=== PATIENT | male | born 1990 | race Two or more races ===

== ENCOUNTER 2020-07-30 17:10 | Emergency (ER) | payer OTHER ==
[~2020-07-30] VITALS: Ht 177.8 cm; Wt 79.4 kg
== END 2020-07-30 20:46 | disposition home or self-care (01) ==
LOC: ER 17:10
DX: S61.451A Open bite of right hand, initial encounter (principal); W54.0XXA Bitten by dog, initial encounter; Y93.89 Activity, other specified; Y92.830 Public park as the place of occurrence of the external cause; Y99.8 Other external cause status

== ENCOUNTER 2020-08-06 17:43 | Emergency (ER) | payer OTHER ==
[~2020-08-06] VITALS: Ht 177.8 cm; Wt 79.4 kg
[2020-08-06] MEDS ORDERED: AMOXICILLIN875 MG (18:04)
== END 2020-08-06 21:24 | disposition home or self-care (01) ==
LOC: ER 17:43
DX: Z48.02 Encounter for removal of sutures (principal)